=== PATIENT | male | born 1950 | race Caucasian/White ===

== ENCOUNTER → 2021-12-10 10:01 | Outpatient (BNVA) | payer MEDICARE, SELFPAY | PROVIDERS: Family Provider Electrodiagnostic Medicine; PCP Electrodiagnostic Medicine; Visit Provider Internal Medicine Cardiovascular Disease | DX: I25.10 Atherosclerotic heart disease of native coronary artery without angina pectoris (principal); I10 Essential (primary) hypertension; E78.49 Other hyperlipidemia; F17.200 Nicotine dependence, unspecified, uncomplicated | CPT/HCPCS: 99213; 99214 ==